=== PATIENT | male | born 1940 | race Caucasian/White ===

== ENCOUNTER 2016-05-17 20:13 | Emergency (ER) | payer OTHER, MEDICARE ==
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
== END 2016-05-17 21:00 | disposition expired ==
LOC: ER 20:13
DX: I46.9 Cardiac arrest, cause unspecified (principal); S09.90XA Unspecified injury of head, initial encounter; V87.7XXA Person injured in collision between other specified motor vehicles (traffic), initial encounter
CPT/HCPCS: 99285